=== PATIENT | male | born 1935 | race Caucasian/White ===

== ENCOUNTER 2017-02-27 05:43 | Day surgery (SDC) | payer MEDICARE ==
[2017-02-27] MEDS ORDERED: Lactated Ringers 1,000 ML IV SCH (06:30)
[2017-02-27] MEDS ORDERED: Ketamine HCl 50 MG/ML IV ONE (08:00)
[2017-02-27] MEDS ORDERED: DIPRIVAN 200 MG/20 ML IV ONE (08:00)
[2017-02-27 11:17] VITALS: O2SAT 91
[2017-02-27 11:19] VITALS: BP 146/87; PULSE 79
--- NOTE | 2017-02-27 15:23 | OP ---
SURGERY DATE/TIME: 02/27/2017 0742 PREOPERATIVE DIAGNOSIS: History of colon cancer. POSTOPERATIVE DIAGNOSIS: Multiple colon polyps. PROCEDURE: Colonoscopy with polypectomy. SURGEON: Dr. Lowry. ANESTHESIA: MAC. Medications given by anesthesia department. HISTORY: The patient is an 81 year-old white male patient presenting now for his second colonoscopy after colon resection for colon cancer. The patient was appraised of the risks of the procedure including the risk of perforation, phlebitis, untoward reaction to medication, bleeding, and missed lesions. The patient verbalized his understanding and desired to have the procedure performed. DESCRIPTION OF PROCEDURE: The patient was given the medications by the anesthesia department. He had continuous pulse oximetry, ECG monitoring, intermittent blood pressure monitoring, and tidal CO2 monitoring during the examination. He was placed in the left lateral decubitus position. A digital rectal examination was performed and revealed an enlarged prostate. No masses were felt. The flexible Olympus pediatric colonoscope was used to intubate the rectum. A view of the colon was developed sequentially to the cecum. Upon insertion and withdrawal there was noted multiple polyps measuring approximately 1 to 1.5 cm in size throughout the colon. We did remove one with polypectomy snare but we were unable to identify polyp fragments in the filter after the procedure. It was felt that due to the nature of the lesions, their size and the patient's overall health that it was in his best interest to not pursue with multiple removals of colon polyps due to potential of bleeding and his other multiple comorbid conditions. The scope was removed from the patient who tolerated the procedure well and was sent back to OP recovery in good condition. The prep was noted to be fair.
== END 2017-02-27 10:55 | disposition home or self-care (01) ==
LOC: SDC 05:43
PROVIDERS: ATTEND Family Medicine
PROC: 0DBL8ZX Excision of Transverse Colon, Via Natural or Artificial Opening Endoscopic, Diagnostic (ICD-10-PCS; principal; 2017-02-27)
DX: D12.3 Benign neoplasm of transverse colon (principal); Z85.038 Personal history of other malignant neoplasm of large intestine; Z90.49 Acquired absence of other specified parts of digestive tract
CPT/HCPCS: 00810; 36415; 88305; 99100; J2704

== ENCOUNTER 2017-05-14 06:57 | Emergency (ER) | payer MEDICARE ==
[2017-05-14 07:41] LABS: BASOPHIL % 0.4 % (0.0-0.4); Eosinophil % 2.1 % (0.00-5.0); Granulocytes % 59.1 % (36.0-66.0); Lymphocytes % 27.4 % (24.0-44.0); Mean Cell Volume 102.8 fl (78-100); Mean Corpuscular Hemoglobin 35.6 pg (26-32); Mean Platelet Volume 10.5 fl (6-9.5); Platelet Count 172 K/mm3 (150-450); Red Blood Count 4.36 M/mm3 (4.1-5.6); Red Cell Distribution Width 13.1 % (11.5-14.0); White Blood Count 10.4 K/mm3 (4.0-10.5)
--- NOTE | 2017-05-14 07:59 | ERPHSYRPT ---
- History of Present Illness Time Seen by Provider: 05/14/17 07:54 Source: patient, family Exam Limitations: no limitations Patient Subjective Stated Complaint: states that he awoke at 0300 this morning to take his pain pill - states that he noticed that his neck was swelling - states that he feels some slight difficulty catching his breath and swallowing - unknown of any new exposure Triage Nursing Assessment: ambulatory to treatment area - steady gait - moves all extremities with equal strength. alert/oriented - unpleasant/anxious affect. skin flushed/hot/dry - no rash/injury - swelling anterior neck. resps easy - labored per exertion - dry intermittent cough Physician History: states that he awoke at 0300 this morning to take his pain pill - states that he noticed that his neck was swelling - states that he feels some slight difficulty catching his breath and swallowing - unknown of any new exposure, no shortness of breath, no choking sensation, no fever, no swallowing difficulties Timing/Duration: abrupt onset Prearrival Treatment: no prearrival treatment Associated Symptoms: denies symptoms Allergies/Adverse Reactions: zolpidem tartrate [From Ambien] Adverse Reaction (Unknown, Verified 05/14/17 07: 03) took a whole tablet while in the hospital and it made him go whacky according to his spouse Home Medications: Aspirin 81 mg PO DAILY 05/14/17 [History] Diltiazem HCl [Diltiazem 24Hr ER] 240 mg PO DAILY 05/14/17 [History] Furosemide 40 mg [Lasix 40 MG] 40 mg PO DAILY 05/14/17 [History] Hydrocodone Bit/Acetaminophen [Hydrocodon-Acetaminophn 10-325] 1 each PO QID [History] Morphine Sulfate Ir 15 mg [Msir 15 mg] 15 mg PO BID 05/14/17 [History] Potassium Chloride 10 Meq Tab* [Klor Con 10 MEQ] 10 meq PO DAILY 05/14/17 [ History] Ranitidine HCl 300 mg PO DAILY 05/14/17 [History] Simvastatin 20 mg PO HS 05/14/17 [History] Hx Tetanus, Diphtheria Vaccination/Date Given: Yes Hx Influenza Vaccination/Date Given: No Hx Pneumococcal Vaccination/Date Given: No Immunizations Up to Date: Yes - Review of Systems Constitutional: No Fever, No Chills Eyes: No Symptoms Ears, Nose, & Throat: Throat Swelling, No Mouth Pain, No Mouth Swelling, No Throat Pain, No Hoarse, No Painful Swallowing, No Snoring, No Stridor Respiratory: No Symptoms Cardiac: No Symptoms Abdominal/Gastrointestinal: No Symptoms Genitourinary Symptoms: No Symptoms Musculoskeletal: No Symptoms Skin: No Symptoms Neurological: No Symptoms Hematologic/Lymphatic: No Symptoms, No Gum Bleeding, No Easy Bruising, No Adenopathy Immunological/Allergic: No Symptoms - Past Medical History Pertinent Past Medical History: Yes Neurological History: TIA ENT History: Cataracts Cardiac History: Coronary Artery Disease, High Cholesterol, Hypertension Respiratory History: COPD, Sleep Apnea Endocrine Medical History: No Pertinent History Musculoskeletal History: Other, Degenerative Disk Disease GI Medical History: Colorectal Cancer, GERD, Hernia, Polyps, Ulcer History: No Pertinent History Psycho-Social History: No Pertinent History Male Reproductive Disorders: Prostate Problems Other Medical History: chronic back pain - Past Surgical History Past Surgical History: Yes Neuro Surgical History: No Pertinent History Cardiac: Cardiac Catheterization, Cardiac Stent Respiratory: No Pertinent History Gastrointestinal: Colon Resection, Hernia Repair Genitourinary: No Pertinent History Musculoskeletal: Other Male Surgical History: Other Other Surgical History: sinus surgery. TURP. Right Shoulder surgery. left elbow surgery. Right carotid artery angioplasty. back surgery - Social History Smoking Status: Former smoker How long have you smoked: 35 Exposure to second hand smoke: No Drug Use: none Patient Lives Alone: No Significant Family History: no pertinent family hx - Nursing Vital Signs Nursing Vital Signs: Initial Vital Signs Temperature 98.8 F Temperature Source Oral Pulse Rate 70 Respiratory Rate 20 Blood Pressure [] 158/74 Pain Intensity 3 - Physical Exam General Appearance: no apparent distress, alert Eye Exam: bilateral eye: PERRL, EOMI Nasal Exam: normal inspection Throat Exam: pharynx normal, moist mucus membranes, No tonsillar exudate Neck Exam: supple (midline anterior swelling), trachea midline Cardiovascular/Respiratory Exam: normal breath sounds, regular rate/rhythm Abdominal Exam: non-tender, soft Neurologic Exam: alert, oriented x 3, sensation nml, No motor deficits Skin Exam: normal color, warm, dry SpO2: 90 Oxygen Delivery: Room Air - Course Nursing assessment & vital signs reviewed: Yes - CT Exams Soft Tissue Neck CT Interpretation: Tele-radiologist Report Ordered Tests: Active Orders 24 hr Category Date Time Status NECK WO CONTRAST [CT] Stat Exams 05/14/17 07:18 Taken CBC W DIFF Stat Lab 05/14/17 07:44 Completed CMP Stat Lab 05/14/17 07:44 Received ESR [Erythrocyte Sedimentation Rate] Stat Lab 05/14/17 07:44 Completed Lab/Rad Data: Laboratory Result Diagrams 05/14/17 07:44 Laboratory Results 05/14/17 05/14/17 Range/Units 07:44 07:44 WBC 10.4 (4.0-10.5) K/mm3 RBC 4.36 (4.1-5.6) M/mm3 Hgb 15.5 (12.5-18.0) gm/dl Hct 44.8 (42-50) % MCV 102.8 H (78-100) fl MCH 35.6 H (26-32) pg MCHC 34.6 (32-36) g/dl RDW 13.1 (11.5-14.0) % Plt Count 172 (150-450) K/mm3 MPV 10.5 H (6-9.5) fl Gran % 59.1 (36.0-66.0) % Lymphocytes % 27.4 (24.0-44.0) % Monocytes % 11.0 (0.0-12.0) % Eosinophils % 2.1 (0.00-5.0) % Basophils % 0.4 (0.0-0.4) % Basophils # 0.04 (0-0.4) ESR 6 (0-15) mm/hr - Progress Progress: unchanged Counseled pt/family regarding: lab results, diagnosis, need for follow-up, rad results - Departure Time of Disposition: 08:12 Departure Disposition: Home 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 If symptoms like breathing difficulties, swallowing problem come back to ER
[2017-05-14 08:07] LABS: ALBUMIN 3.1 g/dL (3.4-5.0); ALKALINE PHOSPHATASE 46 U/L (46-116); ANION GAP 12.5 MEQ/L (5-15); BLOOD UREA NITROGEN 11 mg/dL (9-20); CHLORIDE 110 mEq/L (98-107); Carbon Dioxide 27.6 mEq/L (21-32); Glucose 121 MG/DL (70-110); Potassium 3.2 mEq/L (3.5-5.1); SGOT/AST 16 U/L (15-37); SGPT/ALT 24 U/L (12-78); SODIUM 147 mEq/L (136-145); Total Protein 6.4 gm/dL (6.4-8.2)
[2017-05-14 08:17] VITALS: BP 139/81; PULSE 68; O2SAT 92
--- NOTE | 2017-05-14 20:03 | XRAY ---
Indication: Gross edema around neck. No known injury. Multiple contiguous axial images obtained through the neck without contrast as ordered. Comparison: None Multiple bilateral dental amalgams produces beam artifact limiting these levels. There is mild bilateral cutaneous edema. Additional deeper soft tissue edema seen in the right submandibular, range management specialist, and parotid spaces presumed inflammatory. The right submandibular gland is slightly prominent. No suspicious air or walled off fluid collection. Scattered small bilateral cervical nodes none pathologically enlarged. Previous right carotid endarterectomy and moderate left carotid calcifications. Superior/infraglottic airway widely patent. Underlying cervical spine intact with moderate/advanced multilevel degenerative spondylosis. Images through the base of the brain and lung apices unremarkable. Impression: 1. Soft tissue edema involving the right range management specialist, submandibular, and parotid space favoring cellulitis/myositis. No walled off fluid collection. 2. Incidental multilevel cervical degenerative spondylosis. Comment: Preliminary interpretation was made by [facility]. No discrepancy. CTDI 26.06
== END 2017-05-14 08:36 | disposition home or self-care (01) ==
LOC: ED 06:57
DX: K12.2 Cellulitis and abscess of mouth (principal); Z79.899 Other long term (current) drug therapy
CPT/HCPCS: 36415; 70490; 80053; 85025; 85652; 99283; 99284

== ENCOUNTER 2022-01-06 10:51 | Inpatient (IN) | payer MEDICARE, OTHER ==
[2022-01-06] MEDS ORDERED: DUONEB 0.5-3 MG/3 ml Neb IH ONE ×2 (11:36→11:41)
--- NOTE | 2022-01-06 11:40 | ERPHSYRPT ---
- History of Present Illness Time Seen by Provider: 01/06/22 10:56 Source: patient Exam Limitations: clinical condition Physician History: 86 years old is brought in the ER with chief complaint of generalized weakness fatigue and tiredness and refusal to eat or drink for the last few days. Per report patient recently and he is having a downhill course since then and not eating drinking as usual. He also has loose stool for the last few days and family noticed some difficulty breathing as well. Patient has cough and oxygen saturation of 86% on room air. Although patient denies any abdominal pain nausea or vomiting but has no appetite. Patient is not a good historian and history is obtained from son over the phone. Timing/Duration: week(s) (1), gradual onset, worse Severity: moderate Associated Symptoms: shortness of breath, cough, chills, weakness Allergies/Adverse Reactions: zolpidem tartrate [From Ambien] Adverse Reaction (Unknown, Verified 05/14/17 07:03) took a whole tablet while in the hospital and it made him go whacky according to his spouse Home Medications: Aspirin 81 mg PO DAILY 05/14/17 [History] Furosemide 40 mg [Lasix 40 MG] 40 mg PO DAILY 05/14/17 [History] Hydrocodone/Acetaminophen [Hydrocodon-Acetaminophn 10-325] 1 each PO QID 05/14/17 [History] Morphine Sulfate Ir 15 mg [Msir 15 mg] 15 mg PO BID 05/14/17 [History] Potassium Chloride 10 Meq Tab* [Klor Con 10 MEQ] 10 meq PO DAILY 05/14/17 [History] Simvastatin 20 mg PO HS 05/14/17 [History] dilTIAZem HCl [Diltiazem 24Hr ER] 240 mg PO DAILY 05/14/17 [History] Hx Tetanus, Diphtheria Vaccination/Date Given: Yes Hx Influenza Vaccination/Date Given: Yes (FALL 2010) Hx Pneumococcal Vaccination/Date Given: (FALL 2010) - Review of Systems All Other Systems: Unable due to condition - Past Medical History Pertinent Past Medical History: Yes Neurological History: TIA ENT History: Cataracts Cardiac History: Coronary Artery Disease, High Cholesterol, Hypertension Respiratory History: COPD, Sleep Apnea Endocrine Medical History: No Pertinent History Musculoskeletal History: Other, Degenerative Disk Disease GI Medical History: Colorectal Cancer, GERD, Hernia, Polyps, Ulcer History: No Pertinent History Psycho-Social History: No Pertinent History Male Reproductive Disorders: Prostate Problems Other Medical History: chronic back pain - Past Surgical History Past Surgical History: Yes Neuro Surgical History: No Pertinent History Cardiac: Cardiac Catheterization, Cardiac Stent Respiratory: No Pertinent History Gastrointestinal: Colon Resection, Hernia Repair Genitourinary: No Pertinent History Musculoskeletal: Other Male Surgical History: Other Other Surgical History: sinus surgery. TURP. Right Shoulder surgery. left elbow surgery. Right carotid artery angioplasty. back surgery - Social History Smoking Status: Former smoker Exposure to second hand smoke: No Drug Use: none Patient Lives Alone: No Significant Family History: no pertinent family hx - Nursing Vital Signs Nursing Vital Signs: Initial Vital Signs Temperature 97.2 F 01/06/22 11:25 Pulse Rate 88 01/06/22 11:25 Respiratory Rate 18 01/06/22 11:25 Blood Pressure 139/80 01/06/22 11:25 O2 Sat by Pulse Oximetry 89 L 01/06/22 11:25 Pain Scale Pain Intensity 2 - Physical Exam General Appearance: no apparent distress, alert Eye Exam: PERRL/EOMI, eyes nml inspection Ears, Nose, Throat Exam: normal ENT inspection, TMs normal, pharynx normal, moist mucous membranes Neck Exam: normal inspection, non-tender, supple, full range of motion Respiratory Exam: diminished breath sounds, crackles/rales, rhonchi, wheezing Cardiovascular Exam: regular rate/rhythm, normal heart sounds Gastrointestinal/Abdomen Exam: soft, normal bowel sounds, No tenderness Back Exam: normal inspection, normal range of motion Extremity Exam: normal inspection, normal range of motion Neurologic Exam: alert, oriented x 3, cooperative, No normal mood/affect, No motor deficits Skin Exam: normal color SpO2 Interpretation: hypoxic, O2 applied SpO2: 93 O2 Delivery: Nasal Cannula - Course EKG Interpreted by Me: RATE (83), Sinus Rhythm, NORMAL AXIS, Q-wave, Non- specific ST Changes Ordered Tests: Active Orders 24 hr Category Date Time Status EKG-ER Only STAT Care 01/06/22 11:35 Active IV Insertion STAT Care 01/06/22 11:35 Active ABDOMEN AND PELVIS W/0 CONTRAS [CT] Stat Exams 01/06/22 11:41 Completed CHEST 1 VIEW (PORTABLE) Stat Exams 01/06/22 11:35 Completed BLOOD CULTURE Stat Lab 01/06/22 12:25 Received CBC W DIFF Stat Lab 01/06/22 12:20 Completed CMP Stat Lab 01/06/22 12:20 Completed LIPASE Stat Lab 01/06/22 12:20 Completed Lactic Acid Stat Lab 01/06/22 12:43 Completed NT PRO BNP Stat Lab 01/06/22 12:20 Completed TROPONIN Q3H Lab 01/06/22 12:20 Completed TROPONIN Q3H Lab 01/06/22 14:45 Completed TROPONIN Q3H Lab 01/06/22 17:45 Ordered TROPONIN Q3H Lab 01/06/22 20:45 Ordered TROPONIN Q3H Lab 01/06/22 23:45 Ordered UA W/RFX UR CULTURE Stat Lab 01/06/22 15:12 Completed Respiratory Therapy Assessment DAILY RT 01/06/22 12:00 Completed Transfer Order Routine Transfer 01/06/22 Ordered Medication Summary Generic Name Dose Route Start Last Admin Trade Name Freq PRN Reason Stop Dose Admin Sodium Chloride 1,000 mls @ 100 mls/hr 01/06/22 11:45 01/06/22 16:57 Sodium Chloride 0.9% 1000 Ml IV 02/05/22 11:44 Not Given .Q10H CHANNING Discontinued Medications Generic Name Dose Route Start Last Admin Trade Name Freq PRN Reason Stop Dose Admin Albuterol/Ipratropium 3 ml 01/06/22 11:36 01/06/22 12:00 Ipratropium/Albuterol Sulfate 3 Ml Ampul.Neb IH 01/06/22 11:37 3 ml STAT ONE Administration Albuterol/Ipratropium Confirm 01/06/22 11:41 Ipratropium/Albuterol Sulfate 3 Ml Ampul.Neb Administered 01/06/22 11:42 Dose 3 ml IH .STK-MED ONE Ceftriaxone Sodium/Dextrose 2 g in 50 mls @ 100 mls/hr 01/06/22 13:22 01/06/22 14:20 Rocephin 2 Gm-D5w 50ml Bag IV 01/06/22 13:51 Infused STAT STA Infusion Azithromycin 500 mg in 250 mls @ 250 mls/hr 01/06/22 13:22 01/06/22 15:08 Zithromax 500 Mg/ 250 Ml Nacl Premix IV 01/06/22 14:21 250 ml/hr STAT STA 250 mls/hr Administration Ceftriaxone Sodium/Dextrose Confirm 01/06/22 13:43 Rocephin 2 Gm-D5w 50ml Bag Administered 01/06/22 13:44 Dose 2 g in 50 mls @ ud IV .STK-MED ONE Azithromycin Confirm 01/06/22 15:01 Zithromax 500 Mg/ 250 Ml Nacl Premix Administered 01/06/22 15:02 Dose 500 mg in 250 mls @ ud IV .STK-MED ONE Sodium Chloride Confirm 01/06/22 16:36 Sodium Chloride 0.9% 1000 Ml Administered 01/06/22 16:37 Dose 1,000 mls @ ud .ROUTE .STK-MED ONE Lab/Rad Data: Laboratory Result Diagrams 01/06/22 12:20 01/06/22 12:20 Laboratory Results 01/06/22 01/06/22 01/06/22 Range/Units 15:21 15:12 14:45 WBC (4.0-10.5) K/mm3 RBC (4.1-5.6) M/mm3 Hgb (12.5-18.0) gm/dl Hct (42-50) % MCV (78-100) fl MCH (26-32) pg MCHC (32-36) g/dl RDW (11.5-14.0) % Plt Count (150-450) K/mm3 MPV (7.5-11.0) fl Gran % (36.0-66.0) % Eos # (Auto) (0-0.5) Absolute Lymphs (auto) (1.0-4.6) Absolute Monos (auto) (0.0-1.3) Lymphocytes % (24.0-44.0) % Monocytes % (0.0-12.0) % Eosinophils % (0.00-5.0) % Basophils % (0.0-0.4) % Absolute Granulocytes (1.4-6.9) Basophils # (0-0.4) Sodium (137-145) mmol/L Potassium (3.5-5.1) mmol/L Chloride (98-107) mmol/L Carbon Dioxide (22-30) mmol/L Anion Gap (5-15) MEQ/L BUN (9-20) mg/dL Creatinine (0.66-1.25) mg/dL Estimated GFR ML/MIN Glucose (74-106) mg/dL Lactic Acid (0.4-2.0) Calcium (8.4-10.2) mg/dL Total Bilirubin (0.2-1.3) mg/dL AST (17-59) U/L ALT (0-50) U/L Alkaline Phosphatase (38-126) U/L Troponin I 0.019 (0.000-0.034) ng/mL NT-Pro-B Natriuret Pep (0-1800) pg/mL Serum Total Protein (6.3-8.2) g/dL Albumin (3.5-5.0) g/dL Lipase (23-300) U/L Urine Color YELLOW (YELLOW) Urine Appearance SLIGHTLY CLOUDY (CLEAR) Urine pH 6.0 (5-6) Ur Specific Humphreys 1.017 (1.005-1.025) Urine Protein >=500 (Negative) Urine Ketones SMALL (NEGATIVE) Urine Blood SMALL (0-5) Noah/ul Urine Nitrite NEGATIVE (NEGATIVE) Urine Bilirubin NEGATIVE (NEGATIVE) Urine Urobilinogen NEGATIVE (0-1) mg/dL Ur Leukocyte Esterase NEGATIVE (NEGATIVE) Urine WBC (Auto) 3-5 (0-5) /HPF Urine RBC (Auto) 16-25 (0-2) /HPF U Epithel Cells (Auto) NONE (FEW) /HPF Urine Bacteria (Auto) RARE (NEGATIVE) /HPF Urine Mucus (Auto) SLIGHT (NEGATIVE) /HPF Urine Culture Reflexed NO (NO) Urine Glucose NEGATIVE (NEGATIVE) mg/dL Influenza Type A Ag NEGATIVE (NEGATIVE) Influenza Type B Ag NEGATIVE (NEGATIVE) RSV (PCR) NEGATIVE (Negative) SARS-CoV-2 (PCR) POSITIVE A (NEGATIVE) 01/06/22 01/06/22 01/06/22 Range/Units 12:43 12:20 12:20 WBC (4.0-10.5) K/mm3 RBC (4.1-5.6) M/mm3 Hgb (12.5-18.0) gm/dl Hct (42-50) % MCV (78-100) fl MCH (26-32) pg MCHC (32-36) g/dl RDW (11.5-14.0) % Plt Count (150-450) K/mm3 MPV (7.5-11.0) fl Gran % (36.0-66.0) % Eos # (Auto) (0-0.5) Absolute Lymphs (auto) (1.0-4.6) Absolute Monos (auto) (0.0-1.3) Lymphocytes % (24.0-44.0) % Monocytes % (0.0-12.0) % Eosinophils % (0.00-5.0) % Basophils % (0.0-0.4) % Absolute Granulocytes (1.4-6.9) Basophils # (0-0.4) Sodium 139 (137-145) mmol/L Potassium 3.9 (3.5-5.1) mmol/L Chloride 98 (98-107) mmol/L Carbon Dioxide 32 H (22-30) mmol/L Anion Gap 13.4 (5-15) MEQ/L BUN 11 (9-20) mg/dL Creatinine 0.85 (0.66-1.25) mg/dL Estimated GFR > 60.0 ML/MIN Glucose 116 H (74-106) mg/dL Lactic Acid 1.9 (0.4-2.0) Calcium 8.3 L (8.4-10.2) mg/dL Total Bilirubin 0.70 (0.2-1.3) mg/dL AST 41 (17-59) U/L ALT 32 (0-50) U/L Alkaline Phosphatase 64 (38-126) U/L Troponin I 0.021 (0.000-0.034) ng/mL NT-Pro-B Natriuret Pep 397 (0-1800) pg/mL Serum Total Protein 6.9 (6.3-8.2) g/dL Albumin 3.7 (3.5-5.0) g/dL Lipase 426 H (23-300) U/L Urine Color (YELLOW) Urine Appearance (CLEAR) Urine pH (5-6) Ur Specific Humphreys (1.005-1.025) Urine Protein (Negative) Urine Ketones (NEGATIVE) Urine Blood (0-5) Noah/ul Urine Nitrite (NEGATIVE) Urine Bilirubin (NEGATIVE) Urine Urobilinogen (0-1) mg/dL Ur Leukocyte Esterase (NEGATIVE) Urine WBC (Auto) (0-5) /HPF Urine RBC (Auto) (0-2) /HPF U Epithel Cells (Auto) (FEW) /HPF Urine Bacteria (Auto) (NEGATIVE) /HPF Urine Mucus (Auto) (NEGATIVE) /HPF Urine Culture Reflexed (NO) Urine Glucose (NEGATIVE) mg/dL Influenza Type A Ag (NEGATIVE) Influenza Type B Ag (NEGATIVE) RSV (PCR) (Negative) SARS-CoV-2 (PCR) (NEGATIVE) 01/06/22 Range/Units 12:20 WBC 6.0 (4.0-10.5) K/mm3 RBC 4.83 (4.1-5.6) M/mm3 Hgb 16.8 (12.5-18.0) gm/dl Hct 51.0 H (42-50) % MCV 105.6 H (78-100) fl MCH 34.8 H (26-32) pg MCHC 32.9 (32-36) g/dl RDW 13.1 (11.5-14.0) % Plt Count 120 L (150-450) K/mm3 MPV 10.8 (7.5-11.0) fl Gran % 60.3 (36.0-66.0) % Eos # (Auto) 0 (0-0.5) Absolute Lymphs (auto) 1.56 (1.0-4.6) Absolute Monos (auto) 0.82 (0.0-1.3) Lymphocytes % 25.9 (24.0-44.0) % Monocytes % 13.6 H (0.0-12.0) % Eosinophils % 0.0 (0.00-5.0) % Basophils % 0.2 (0.0-0.4) % Absolute Granulocytes 3.64 (1.4-6.9) Basophils # 0.01 (0-0.4) Sodium (137-145) mmol/L Potassium (3.5-5.1) mmol/L Chloride (98-107) mmol/L Carbon Dioxide (22-30) mmol/L Anion Gap (5-15) MEQ/L BUN (9-20) mg/dL Creatinine (0.66-1.25) mg/dL Estimated GFR ML/MIN Glucose (74-106) mg/dL Lactic Acid (0.4-2.0) Calcium (8.4-10.2) mg/dL Total Bilirubin (0.2-1.3) mg/dL AST (17-59) U/L ALT (0-50) U/L Alkaline Phosphatase (38-126) U/L Troponin I (0.000-0.034) ng/mL NT-Pro-B Natriuret Pep (0-1800) pg/mL Serum Total Protein (6.3-8.2) g/dL Albumin (3.5-5.0) g/dL Lipase (23-300) U/L Urine Color (YELLOW) Urine Appearance (CLEAR) Urine pH (5-6) Ur Specific Humphreys (1.005-1.025) Urine Protein (Negative) Urine Ketones (NEGATIVE) Urine Blood (0-5) Noah/ul Urine Nitrite (NEGATIVE) Urine Bilirubin (NEGATIVE) Urine Urobilinogen (0-1) mg/dL Ur Leukocyte Esterase (NEGATIVE) Urine WBC (Auto) (0-5) /HPF Urine RBC (Auto) (0-2) /HPF U Epithel Cells (Auto) (FEW) /HPF Urine Bacteria (Auto) (NEGATIVE) /HPF Urine Mucus (Auto) (NEGATIVE) /HPF Urine Culture Reflexed (NO) Urine Glucose (NEGATIVE) mg/dL Influenza Type A Ag (NEGATIVE) Influenza Type B Ag (NEGATIVE) RSV (PCR) (Negative) SARS-CoV-2 (PCR) (NEGATIVE) - Progress Progress: improved, re-examined Progress Note: 01/06/22 13:25 86 years old is evaluated for generalized weakness fatigue, decreased oral intake, diarrhea and was having difficulty breathing with oxygen saturation dropping to 86% on room air. Placed on 2 L and given neb treatment, on reevaluation feeling better. Chest x-ray showed bilateral airspace disease, started on antibiotics. Has normal white count, lactate. Chemistry profile showed mild hypocalcemia. I have obtained CT abdomen pelvis as well which showed a calculus in the bladder but no obstructive uropathy. We will continue with gentle hydration and discussed with Dr. Lowry, patient is admitted. 01/06/22 17:13 Patient is COVID-19 positive, discussed with Dr. Mann and patient is accepted for admission, recommended starting on remdesivir which will be started. Discussed with : Phong Morales Will see patient in: hospital (observation) Counseled pt/family regarding: lab results, diagnosis, need for follow-up, rad results - Departure Departure Disposition: Observation Clinical Impression: Pneumonia, Generalized weakness Respiratory failure Qualifiers: Chronicity: acute Respiratory failure complication: hypoxia Qualified Code(s): J96.01 - Acute respiratory failure with hypoxia Condition: Stable Critical Care Time: No
[2022-01-06 12:32] LABS: Absolute Neutrophil Ct (ANC) 3.64 (1.4-6.9); Basophil (Absolute #) 0.01 (0-0.4); Eosinophil (Absolute #) 0 (0-0.5); Hemoglobin 16.8 gm/dl (12.5-18.0); Lymphocyte (Absolute #) 1.56 (1.0-4.6); Lymphocytes % 25.9 % (24.0-44.0); Mean Cell Volume 105.6 fl (78-100); Mean Corpuscular Hemoglobin 34.8 pg (26-32); Mean Corpuscular Hgb Concent. 32.9 g/dl (32-36); Mean Platelet Volume 10.8 fl (7.5-11.0); Monocyte (Absolute #) 0.82 (0.0-1.3); Monocytes % 13.6 % (0.0-12.0); Neutrophil % 60.3 % (36.0-66.0); Platelet Count 120 K/mm3 (150-450); Red Blood Count 4.83 M/mm3 (4.1-5.6); Red Cell Distribution Width 13.1 % (11.5-14.0)
[2022-01-06 13:02] LABS: ALBUMIN 3.7 g/dL (3.5-5.0); ALKALINE PHOSPHATASE 64 U/L (38-126); ANION GAP 13.4 MEQ/L (5-15); BLOOD UREA NITROGEN 11 mg/dL (9-20); CHLORIDE 98 mmol/L (98-107); Calcium 8.3 mg/dL (8.4-10.2); Carbon Dioxide 32 mmol/L (22-30); Creatinine 1 0.85 mg/dL (0.66-1.25); EST GLOMERULAR FILTRATION RATE > 60.0 ML/MIN; Glucose 116 mg/dL (74-106); LIPASE 426 U/L (23-300); NT PRO BNP 397 pg/mL (0-1800); Potassium 3.9 mmol/L (3.5-5.1); SGOT/AST 41 U/L (17-59); SGPT/ALT 32 U/L (0-50); SODIUM 139 mmol/L (137-145); Total Protein 6.9 g/dL (6.3-8.2)
--- NOTE | 2022-01-06 13:11 | XRAY ---
Indication: Diarrhea. Multiple contiguous axial images obtained through the abdomen and pelvis without contrast. Comparison: September 27, 2011. Diffuse respiration artifact limits the exam. Lung bases demonstrates new diffuse patchy consolidating/nonconsolidating airspace disease left greater than right. No effusion. Heart is not enlarged. Right hilar calcified nodes. Noncontrasted stomach and bowel loops appear nonobstructed. Normal appendix. No free fluid/air. Interval markedly enlarging prostate gland again impresses on the base of the bladder. Posterior bladder demonstrates 4 mm midline calculus. Left upper kidney demonstrates new 1.6 cm exophytic cyst. New tiny hepatic/splenic calcific granulomas. Remaining liver, gallbladder, pancreas, spleen, adrenal glands, kidneys, ureters, and bladder are unremarkable for noncontrast exam. Worsening significant scattered arteriosclerotic calcifications with distal abdominal aortic ectasia up to 2.7 cm in diameter. Osseous structures again demonstrates osteopenia, moderate dextroscoliosis, and progressive worsening moderate/advanced multilevel thoracolumbar degenerative spondylosis. Stable small bilateral fatty inguinal hernias. Impression: 1. Diffuse respiration artifact. 2. New diffuse bilateral consolidating/nonconsolidating airspace disease. Rule out Covid 19 pneumonia. 3. New urinary bladder micro-calculus without hydronephrosis or evidence for obstructive uropathy. New left renal cyst. 4. Worsening scattered arteriosclerotic disease with distal abdominal aortic ectasia. 5. Markedly enlarged prostate gland. 6. Progressive worsening multilevel degenerative spondylosis. 7. Again bilateral fatty inguinal hernias, osteopenia, scoliosis, and old granulomatous disease.
--- NOTE | 2022-01-06 13:13 | XRAY ---
Indication: Weakness. Pneumonia. Comparison: June 11, 2015. Portable chest less inflated with new bibasilar hazy interstitial alveolar opacities. No large effusion. Heart not enlarged again with right hilar calcified nodes. Bony thorax intact again with osteopenia, degenerative changes, and right shoulder surgery.
[2022-01-06] MEDS ORDERED: Zithromax 500 MG/ 250 ML NaCl Premix 500 MG/250 ML IVPB IV STA (13:22)
[2022-01-06] MEDS ORDERED: ROCEPHIN 2 Gm-D5w 50ML BAG** 2 G/50 ML IVPB IV STA (13:22)
[2022-01-06] MEDS ORDERED: ROCEPHIN 2 Gm-D5w 50ML BAG** 2 G/50 ML IVPB IV ONE (13:43)
[2022-01-06] MEDS ORDERED: Zithromax 500 MG/ 250 ML NaCl Premix 500 MG/250 ML IVPB IV ONE (15:01)
[2022-01-06 15:28] LABS: Appearance SLIGHTLY CLOUDY (CLEAR); Bacteria RARE /HPF (NEGATIVE); Bilirubin NEGATIVE (NEGATIVE); Blood SMALL Ery/ul (0-5); Glucose NEGATIVE (NEGATIVE); Ketones SMALL (NEGATIVE); Leukocyte Esterase NEGATIVE (NEGATIVE); Mucus SLIGHT /HPF (NEGATIVE); Nitrite NEGATIVE (NEGATIVE); Protein,Urine Dip >=500 (Negative); Specific Gravity 1.017 (1.005-1.025); Urobilinogen NEGATIVE mg/dL (0-1)
[2022-01-06 16:08] LABS: INFLUENZA A NEGATIVE (NEGATIVE); INFLUENZA B NEGATIVE (NEGATIVE); RESPIRATORY SYNCTIAL VIRUS NEGATIVE (Negative)
[2022-01-06 16:14] LABS: SARS-CoV-2 Xpert Express POSITIVE (NEGATIVE)
[2022-01-06] MEDS ORDERED: Sodium Chloride 0.9% 1000 ML 1,000 ML ONE (16:36)
[2022-01-06] MEDS: Sodium Chloride 0.9% 1000 ML 1,000 ML IV SCH (16:57)
[2022-01-06] MEDS ORDERED: TYLENOL 325 MG PO PRN (17:35)
[2022-01-06] MEDS ORDERED: Zofran 4 MG/2 ML VIAL IV PRN (17:35)
[2022-01-06] MEDS ORDERED: DUONEB 0.5-3 MG/3 ml Neb IH SCH (19:00)
[2022-01-06] MEDS ORDERED: REMDESIVIR 200 MG in Sodium Chloride 0.9% 250 ML 250 ML IV ONE (19:00)
[2022-01-06] MEDS ORDERED: HYDROCODONE-ACETAMIN 10-325 MG PO PRN (20:37)
[2022-01-06] MEDS ORDERED: MSIR 15 MG PO PRN ×2 (20:38→20:42)
[2022-01-06] MEDS ORDERED: Ativan 1 MG PO PRN (20:40)
[2022-01-06] MEDS: ZOCOR 20MG PO SCH (20:46)
[2022-01-07] MEDS: Sodium Chloride 0.9% 1000 ML 1,000 ML IV SCH ×2 (04:05→19:30)
[2022-01-07 05:38] LABS: Absolute Neutrophil Ct (ANC) 4.11 (1.4-6.9); Basophil (Absolute #) 0.01 (0-0.4); Eosinophil % 0.2 % (0.00-5.0); Eosinophil (Absolute #) 0.01 (0-0.5); Hematocrit 50.9 % (42-50); Hemoglobin 16.9 gm/dl (12.5-18.0); Lymphocyte (Absolute #) 1.35 (1.0-4.6); Mean Cell Volume 105.8 fl (78-100); Mean Corpuscular Hemoglobin 35.1 pg (26-32); Mean Corpuscular Hgb Concent. 33.2 g/dl (32-36); Mean Platelet Volume 11.3 fl (7.5-11.0); Monocyte (Absolute #) 0.66 (0.0-1.3); Monocytes % 10.7 % (0.0-12.0); Neutrophil % 66.9 % (36.0-66.0); Platelet Count 117 K/mm3 (150-450); Red Blood Count 4.81 M/mm3 (4.1-5.6); Red Cell Distribution Width 13.3 % (11.5-14.0); White Blood Count 6.1 K/mm3 (4.0-10.5)
[2022-01-07 06:16] LABS: ALBUMIN 3.3 g/dL (3.5-5.0); ALKALINE PHOSPHATASE 50 U/L (38-126); ANION GAP 11.3 MEQ/L (5-15); BLOOD UREA NITROGEN 10 mg/dL (9-20); CHLORIDE 103 mmol/L (98-107); Calcium 7.8 mg/dL (8.4-10.2); Carbon Dioxide 29 mmol/L (22-30); Creatinine 1 0.78 mg/dL (0.66-1.25); EST GLOMERULAR FILTRATION RATE > 60.0 ML/MIN; Glucose 93 mg/dL (74-106); Potassium 3.8 mmol/L (3.5-5.1); SGOT/AST 48 U/L (17-59); SGPT/ALT 35 U/L (0-50); SODIUM 139 mmol/L (137-145); Total Protein 6.6 g/dL (6.3-8.2)
[2022-01-07] MEDS: HYDROCODONE-ACETAMIN 10-325 MG PO PRN ×2 (07:28→14:46)
[2022-01-07] MEDS ORDERED: TYLENOL EXTRA STRENGTH 500 MG PO PRN (09:56)
[2022-01-07] MEDS ORDERED: Ativan 2 MG/1 ML VIAL IV PRN (09:56)
[2022-01-07] MEDS ORDERED: HYDROCODONE-CHLORPHEN ER SUSP PO PRN (09:56)
[2022-01-07] MEDS ORDERED: FEVERALL 650 MG PR PRN (09:56)
[2022-01-07] MEDS ORDERED: NON-FORMULARY ITEM (Aspirin [Aspirin] 81 MG Tablet) PO SCH (10:00)
[2022-01-07] MEDS ORDERED: NON-FORMULARY ITEM (Diltiazem Hcl [Diltiazem 24hr Er (Cd)] 240 MG Cap.Er.24h) PO SCH (10:00)
[2022-01-07] MEDS: ENOXAPARIN SODIUM SQ SCH (10:25)
[2022-01-07] MEDS: Cardizem CD 120 MG PO SCH (10:25)
[2022-01-07] MEDS: Klor Con 10 MEQ PO SCH (10:25)
[2022-01-07] MEDS: Lasix 40 MG PO SCH (10:25)
[2022-01-07] MEDS: ECOTRIN 81 MG PO SCH (10:25)
[2022-01-07] MEDS: DECADRON 10MG INJ. IV SCH (10:26)
[2022-01-07] MEDS: PROTONIX 40 MG IV IV SCH (10:26)
[2022-01-07] MEDS: ROCEPHIN 2 Gm-D5w 50ML BAG** 2 G/50 ML IVPB IV SCH (10:39)
[2022-01-07] MEDS: Zithromax 500 MG/ 250 ML NaCl Premix 500 MG/250 ML IVPB IV SCH (10:39)
[2022-01-07] MEDS: IMODIUM 2 MG PO PRN ×2 (17:42→21:26)
[2022-01-07] MEDS: MSIR 15 MG PO SCH (21:26)
[2022-01-07] MEDS: ZOCOR 20MG PO SCH (21:26)
[2022-01-07] MEDS: REMDESIVIR 100 MG in Sodium Chloride 0.9% 100 ML BAG 100 ML IV SCH (21:26)
[2022-01-08] MEDS: Ativan 2 MG/1 ML VIAL IV PRN ×3 (02:31→21:16)
[2022-01-08] MEDS: Sodium Chloride 0.9% 1000 ML 1,000 ML IV SCH ×5 (05:43→22:42)
[2022-01-08 06:06] LABS: Hematocrit 48.3 % (42-50); Hemoglobin 16.3 gm/dl (12.5-18.0); Mean Cell Volume 105.7 fl (78-100); Mean Corpuscular Hemoglobin 35.7 pg (26-32); Mean Corpuscular Hgb Concent. 33.7 g/dl (32-36); Mean Platelet Volume 11.5 fl (7.5-11.0); Platelet Count 106 K/mm3 (150-450); Red Blood Count 4.57 M/mm3 (4.1-5.6); White Blood Count 4.6 K/mm3 (4.0-10.5)
[2022-01-08 06:20] LABS: ALBUMIN 2.9 g/dL (3.5-5.0); ALKALINE PHOSPHATASE 44 U/L (38-126); ANION GAP 10.3 MEQ/L (5-15); BLOOD UREA NITROGEN 20 mg/dL (9-20); CHLORIDE 110 mmol/L (98-107); Calcium 7.6 mg/dL (8.4-10.2); Carbon Dioxide 26 mmol/L (22-30); Creatinine 1 0.79 mg/dL (0.66-1.25); EST GLOMERULAR FILTRATION RATE > 60.0 ML/MIN; Glucose 142 mg/dL (74-106); Potassium 3.8 mmol/L (3.5-5.1); SGOT/AST 32 U/L (17-59); SGPT/ALT 34 U/L (0-50); SODIUM 142 mmol/L (137-145)
[2022-01-08] MEDS: HYDROCODONE-ACETAMIN 10-325 MG PO PRN ×2 (07:27→11:43)
--- NOTE | 2022-01-08 07:30 | XRAY ---
Indication: Follow-up Covid 19 pneumonia. Comparison: January 06, 2022. Portable chest underinflated with interval worsening mild diffuse left lung consolidating/nonconsolidating airspace disease. Stable right base infiltrate/atelectasis. Heart not enlarged. Comment: Preliminary interpretation made by [facility]. No critical discrepancy.
[2022-01-08] MEDS: ECOTRIN 81 MG PO SCH (09:16)
[2022-01-08] MEDS: DECADRON 10MG INJ. IV SCH (09:16)
[2022-01-08] MEDS: Lasix 40 MG PO SCH (09:16)
[2022-01-08] MEDS: Cardizem CD 120 MG PO SCH (09:16)
[2022-01-08] MEDS: ENOXAPARIN SODIUM SQ SCH ×2 (09:16→21:15)
[2022-01-08] MEDS: PROTONIX 40 MG IV IV SCH (09:16)
[2022-01-08] MEDS: Klor Con 10 MEQ PO SCH (09:16)
[2022-01-08] MEDS: MSIR 15 MG PO SCH ×2 (09:16→21:17)
[2022-01-08] MEDS: NYSTOP POWDER 15 GM TP SCH ×2 (09:17→21:17)
[2022-01-08] MEDS: Zithromax 500 MG/ 250 ML NaCl Premix 500 MG/250 ML IVPB IV SCH (09:22)
[2022-01-08] MEDS: ROCEPHIN 2 Gm-D5w 50ML BAG** 2 G/50 ML IVPB IV SCH (10:11)
[2022-01-08] MEDS ORDERED: ENOXAPARIN SODIUM SQ ONE (11:30)
[2022-01-08] MEDS ORDERED: Lasix 20 MG/2 ML IV ONE (11:30)
[2022-01-08] MEDS: IMODIUM 2 MG PO PRN (11:43)
[2022-01-08] MEDS: OLUMIANT PO SCH (11:43)
[2022-01-08] MEDS: ZOCOR 20MG PO SCH (21:15)
[2022-01-08] MEDS: REMDESIVIR 100 MG in Sodium Chloride 0.9% 100 ML BAG 100 ML IV SCH (21:15)
[2022-01-09] MEDS: Artificial Tears 15 ML OP SCH ×3 (01:38→22:45)
[2022-01-09] MEDS: Ativan 2 MG/1 ML VIAL IV PRN ×3 (02:41→12:52)
[2022-01-09] MEDS: HYDROCODONE-ACETAMIN 10-325 MG PO PRN ×2 (03:25→12:49)
[2022-01-09 05:49] LABS: Hematocrit 50.4 % (42-50); Hemoglobin 16.9 gm/dl (12.5-18.0); Mean Cell Volume 104.8 fl (78-100); Mean Corpuscular Hemoglobin 35.1 pg (26-32); Mean Corpuscular Hgb Concent. 33.5 g/dl (32-36); Mean Platelet Volume 11.4 fl (7.5-11.0); Platelet Count 136 K/mm3 (150-450); Red Blood Count 4.81 M/mm3 (4.1-5.6); Red Cell Distribution Width 13.2 % (11.5-14.0); White Blood Count 7.2 K/mm3 (4.0-10.5)
[2022-01-09 06:10] LABS: ALKALINE PHOSPHATASE 44 U/L (38-126); ANION GAP 11.3 MEQ/L (5-15); BLOOD UREA NITROGEN 24 mg/dL (9-20); CHLORIDE 111 mmol/L (98-107); Calcium 7.6 mg/dL (8.4-10.2); Carbon Dioxide 26 mmol/L (22-30); Creatinine 1 0.92 mg/dL (0.66-1.25); EST GLOMERULAR FILTRATION RATE > 60.0 ML/MIN; Glucose 157 mg/dL (74-106); Potassium 3.5 mmol/L (3.5-5.1); SGOT/AST 22 U/L (17-59); SGPT/ALT 27 U/L (0-50); SODIUM 145 mmol/L (137-145); Total Protein 6.1 g/dL (6.3-8.2)
[2022-01-09] MEDS ORDERED: Haldol 5 MG IM PRN (08:56)
--- NOTE | 2022-01-09 08:56 | XRAY ---
Indication: Follow-up Covid 19 pneumonia. Comparison: One day earlier. Portable chest unchanged again underinflated with diffuse left lung consolidating/nonconsolidating airspace disease and mild right base infiltrate/atelectasis. Heart not enlarged. No new cardiopulmonary abnormalities.
[2022-01-09] MEDS ORDERED: Haldol 5 MG IM ONE (10:04)
[2022-01-09] MEDS: Lasix 40 MG PO SCH (10:06)
[2022-01-09] MEDS: OLUMIANT PO SCH (10:06)
[2022-01-09] MEDS: ECOTRIN 81 MG PO SCH (10:06)
[2022-01-09] MEDS: Cardizem CD 120 MG PO SCH (10:06)
[2022-01-09] MEDS: DECADRON 10MG INJ. IV SCH (10:06)
[2022-01-09] MEDS: Klor Con 10 MEQ PO SCH (10:06)
[2022-01-09] MEDS: PROTONIX 40 MG IV IV SCH (10:08)
[2022-01-09] MEDS: NYSTOP POWDER 15 GM TP SCH ×2 (10:09→22:47)
[2022-01-09] MEDS: MSIR 15 MG PO SCH ×2 (10:16→22:46)
[2022-01-09] MEDS: IMODIUM 2 MG PO PRN (10:21)
[2022-01-09] MEDS: ENOXAPARIN SODIUM SQ SCH ×2 (11:20→22:45)
[2022-01-09] MEDS: Sodium Chloride 0.9% 1000 ML 1,000 ML IV SCH ×3 (15:11→23:12)
[2022-01-09] MEDS: REMDESIVIR 100 MG in Sodium Chloride 0.9% 100 ML BAG 100 ML IV SCH (22:45)
[2022-01-09] MEDS: ZOCOR 20MG PO SCH (22:46)
[2022-01-10] MEDS: Haldol 5 MG IM PRN ×3 (01:23→18:52)
[2022-01-10] MEDS: Ativan 2 MG/1 ML VIAL IV PRN ×3 (04:33→22:38)
[2022-01-10 05:12] LABS: Hematocrit 49.1 % (42-50); Hemoglobin 16.4 gm/dl (12.5-18.0); Mean Cell Volume 104.9 fl (78-100); Mean Corpuscular Hgb Concent. 33.4 g/dl (32-36); Platelet Count 151 K/mm3 (150-450); Red Blood Count 4.68 M/mm3 (4.1-5.6); Red Cell Distribution Width 12.8 % (11.5-14.0); White Blood Count 4.9 K/mm3 (4.0-10.5)
[2022-01-10 05:36] LABS: ALKALINE PHOSPHATASE 42 U/L (38-126); ANION GAP 10.3 MEQ/L (5-15); BLOOD UREA NITROGEN 26 mg/dL (9-20); CHLORIDE 106 mmol/L (98-107); Calcium 7.6 mg/dL (8.4-10.2); Carbon Dioxide 31 mmol/L (22-30); Creatinine 1 0.91 mg/dL (0.66-1.25); EST GLOMERULAR FILTRATION RATE > 60.0 ML/MIN; Glucose 143 mg/dL (74-106); Potassium 3.5 mmol/L (3.5-5.1); SGOT/AST 27 U/L (17-59); SGPT/ALT 28 U/L (0-50); SODIUM 143 mmol/L (137-145)
[2022-01-10 07:33] LABS: A-aADO2 451; ABG POTASSIUM 3.4 (3.5-5.1); ABG SITE LEFT BRACHIAL; ARTERIAL BLD GAS O2 SATURATION 92.5 % (95-100); ARTERIAL BLOOD GAS BASE EXCESS 7.5 (-2.0-2.0); ARTERIAL BLOOD GAS FIO2 80 %; ARTERIAL BLOOD GAS PCO2 47 mmHg (35-45); ARTERIAL BLOOD GAS PO2 61 mmHg (75-100); ARTERIAL BLOOD GAS VENT MODE OXYMASK 15 L; ARTERIAL BLOOD GAS pH 7.45 (7.35-7.45); CARBOXYHEMOGLOBIN 1.5 % THgb (0.0-6.9); HCO3- 32.7 (22-28); HGB O2 SAT 90.6 g/dF (94-100); Methhemoglobin 0.6 % (1.4-1.5)
[2022-01-10] MEDS: Sodium Chloride 0.9% 1000 ML 1,000 ML IV SCH ×2 (08:31→16:08)
[2022-01-10] MEDS: PROTONIX 40 MG IV IV SCH (09:15)
[2022-01-10] MEDS: ENOXAPARIN SODIUM SQ SCH ×2 (09:15→22:22)
[2022-01-10] MEDS: DECADRON 10MG INJ. IV SCH (09:15)
[2022-01-10] MEDS: OLUMIANT PO SCH (09:16)
[2022-01-10] MEDS: Cardizem CD 120 MG PO SCH (09:16)
[2022-01-10] MEDS: Lasix 40 MG PO SCH (09:16)
[2022-01-10] MEDS: Klor Con 10 MEQ PO SCH (09:17)
[2022-01-10] MEDS: ECOTRIN 81 MG PO SCH (09:17)
[2022-01-10] MEDS: Artificial Tears 15 ML OP SCH ×2 (09:17→22:22)
[2022-01-10] MEDS: NYSTOP POWDER 15 GM TP SCH ×2 (09:26→22:23)
[2022-01-10] MEDS: MSIR 15 MG PO SCH ×2 (09:26→22:22)
[2022-01-10] MEDS: IMODIUM 2 MG PO PRN (11:49)
[2022-01-10] MEDS: HYDROCODONE-ACETAMIN 10-325 MG PO PRN (11:54)
[2022-01-10] MEDS: ZOCOR 20MG PO SCH (22:23)
[2022-01-10] MEDS: REMDESIVIR 100 MG in Sodium Chloride 0.9% 100 ML BAG 100 ML IV SCH (22:23)
[2022-01-11] MEDS: Sodium Chloride 0.9% 1000 ML 1,000 ML IV SCH ×4 (00:40→22:20)
[2022-01-11] MEDS: Ativan 2 MG/1 ML VIAL IV PRN ×2 (02:47→08:12)
[2022-01-11 07:45] LABS: Absolute Neutrophil Ct (ANC) 3.92 (1.4-6.9); Basophil (Absolute #) 0.02 (0-0.4); Eosinophil (Absolute #) 0 (0-0.5); Hematocrit 50.6 % (42-50); Hemoglobin 17.1 gm/dl (12.5-18.0); Lymphocyte (Absolute #) 0.94 (1.0-4.6); Lymphocytes % 16.8 % (24.0-44.0); Mean Cell Volume 103.9 fl (78-100); Mean Corpuscular Hemoglobin 35.1 pg (26-32); Mean Corpuscular Hgb Concent. 33.8 g/dl (32-36); Monocyte (Absolute #) 0.71 (0.0-1.3); Monocytes % 12.7 % (0.0-12.0); Neutrophil % 70.1 % (36.0-66.0); Platelet Count 150 K/mm3 (150-450); Red Blood Count 4.87 M/mm3 (4.1-5.6); Red Cell Distribution Width 12.5 % (11.5-14.0); White Blood Count 5.6 K/mm3 (4.0-10.5)
[2022-01-11 07:51] LABS: ALKALINE PHOSPHATASE 43 U/L (38-126); ANION GAP 10.8 MEQ/L (5-15); BLOOD UREA NITROGEN 24 mg/dL (9-20); CHLORIDE 108 mmol/L (98-107); Calcium 7.7 mg/dL (8.4-10.2); Carbon Dioxide 30 mmol/L (22-30); Creatinine 1 0.79 mg/dL (0.66-1.25); EST GLOMERULAR FILTRATION RATE > 60.0 ML/MIN; Glucose 142 mg/dL (74-106); Potassium 3.6 mmol/L (3.5-5.1); SGOT/AST 35 U/L (17-59); SGPT/ALT 37 U/L (0-50); SODIUM 145 mmol/L (137-145); Total Protein 5.9 g/dL (6.3-8.2)
[2022-01-11] MEDS: PROTONIX 40 MG IV IV SCH (08:59)
[2022-01-11] MEDS: ENOXAPARIN SODIUM SQ SCH ×2 (08:59→21:06)
[2022-01-11] MEDS: OLUMIANT PO SCH (08:59)
[2022-01-11] MEDS: Artificial Tears 15 ML OP SCH ×2 (09:00→21:06)
[2022-01-11] MEDS: DECADRON 10MG INJ. IV SCH (09:00)
[2022-01-11] MEDS: ECOTRIN 81 MG PO SCH (09:00)
[2022-01-11] MEDS: Cardizem CD 120 MG PO SCH (09:00)
[2022-01-11] MEDS: IMODIUM 2 MG PO PRN (09:00)
[2022-01-11] MEDS: Lasix 40 MG PO SCH (09:00)
[2022-01-11] MEDS: Klor Con 10 MEQ PO SCH (09:01)
[2022-01-11] MEDS: MSIR 15 MG PO SCH (09:01)
[2022-01-11] MEDS: NYSTOP POWDER 15 GM TP SCH ×2 (09:04→21:07)
[2022-01-11] MEDS: Haldol 5 MG IM PRN ×3 (09:33→21:07)
[2022-01-11] MEDS: HYDROCODONE-ACETAMIN 10-325 MG PO PRN (12:24)
[2022-01-11] MEDS: ZOCOR 20MG PO SCH (21:07)
[2022-01-12] MEDS ORDERED: Cardizem CD 120 MG PO ONE (01:03)
[2022-01-12] MEDS: Ativan 2 MG/1 ML VIAL IV PRN ×3 (01:33→15:30)
[2022-01-12] MEDS ORDERED: NITRO-DUR 0.2 MG/HR TD ONE (02:27)
[2022-01-12] MEDS: Haldol 5 MG IM PRN (03:39)
[2022-01-12 05:39] LABS: Hematocrit 56.5 % (42-50); Hemoglobin 18.9 gm/dl (12.5-18.0); Mean Cell Volume 105.8 fl (78-100); Mean Corpuscular Hemoglobin 35.4 pg (26-32); Mean Corpuscular Hgb Concent. 33.5 g/dl (32-36); Platelet Count 111 K/mm3 (150-450); Red Blood Count 5.34 M/mm3 (4.1-5.6); Red Cell Distribution Width 12.7 % (11.5-14.0); White Blood Count 11.2 K/mm3 (4.0-10.5)
[2022-01-12 06:29] LABS: ALBUMIN 3.2 g/dL (3.5-5.0); ALKALINE PHOSPHATASE 47 U/L (38-126); BLOOD UREA NITROGEN 22 mg/dL (9-20); CHLORIDE 107 mmol/L (98-107); Calcium 7.9 mg/dL (8.4-10.2); Carbon Dioxide 29 mmol/L (22-30); Creatinine 1 0.69 mg/dL (0.66-1.25); EST GLOMERULAR FILTRATION RATE > 60.0 ML/MIN; Glucose 148 mg/dL (74-106); Potassium 4.3 mmol/L (3.5-5.1); SGOT/AST 49 U/L (17-59); SGPT/ALT 44 U/L (0-50); SODIUM 142 mmol/L (137-145); Total Protein 6.3 g/dL (6.3-8.2)
[2022-01-12 07:49] LABS: Lymphocytes 17 % (24-44); Neutrophils 83 % (36.-66.); Total Cells Counted 100
[2022-01-12 07:50] LABS: ANISOCYTOSIS 1+; Platelet Estimate NORMAL (NORMAL)
[2022-01-12] MEDS: Sodium Chloride 0.9% 1000 ML 1,000 ML IV SCH ×2 (08:24→21:37)
[2022-01-12] MEDS ORDERED: VASOTEC I.V. 2.5 MG IV PRN (08:33)
--- NOTE | 2022-01-12 08:36 | XRAY ---
Indication: Follow-up Covid 19 pneumonia. Comparison: [place] 2021. Portable chest remains underinflated again with diffuse left lung consolidating/nonconsolidating airspace disease mildly improved and stable mild right base infiltrate/atelectasis. Heart not enlarged. No new cardiopulmonary abnormalities.
[2022-01-12] MEDS: Lasix 40 MG/4 ML IV SCH (09:59)
[2022-01-12] MEDS ORDERED: Duragesic 25MCG Patch TD SCH (10:00)
[2022-01-12] MEDS ORDERED: Decadron 4 MG INJ IV SCH (10:00)
[2022-01-12] MEDS: PROTONIX 40 MG IV IV SCH (10:01)
[2022-01-12] MEDS: ENOXAPARIN SODIUM SQ SCH ×2 (10:03→21:37)
[2022-01-12] MEDS: Levofloxacin 500MG/100ML D5W 500 MG/100 ML BAG IV SCH (10:03)
[2022-01-12] MEDS: Artificial Tears 15 ML OP SCH ×2 (10:04→21:37)
[2022-01-12] MEDS: Klor Con 10 MEQ PO SCH (10:40)
[2022-01-12] MEDS: NYSTOP POWDER 15 GM TP SCH ×2 (10:40→21:42)
[2022-01-12] MEDS: Cardizem CD 120 MG PO SCH (10:40)
[2022-01-12] MEDS: ECOTRIN 81 MG PO SCH (10:40)
[2022-01-12] MEDS: OLUMIANT PO SCH (10:41)
[2022-01-12] MEDS: ZOCOR 20MG PO SCH (21:42)
[2022-01-13] MEDS: Ativan 2 MG/1 ML VIAL IV PRN ×2 (02:34→07:19)
[2022-01-13 05:02] LABS: Absolute Neutrophil Ct (ANC) 10.05 (1.4-6.9); Basophil (Absolute #) 0.02 (0-0.4); Eosinophil (Absolute #) 0 (0-0.5); Hemoglobin 17.5 gm/dl (12.5-18.0); Lymphocyte (Absolute #) 0.93 (1.0-4.6); Lymphocytes % 7.4 % (24.0-44.0); Mean Cell Volume 102.8 fl (78-100); Mean Corpuscular Hemoglobin 34.6 pg (26-32); Mean Corpuscular Hgb Concent. 33.7 g/dl (32-36); Mean Platelet Volume 11.2 fl (7.5-11.0); Monocyte (Absolute #) 1.54 (0.0-1.3); Monocytes % 12.3 % (0.0-12.0); Neutrophil % 80.1 % (36.0-66.0); Platelet Count 191 K/mm3 (150-450); Red Blood Count 5.06 M/mm3 (4.1-5.6); Red Cell Distribution Width 12.7 % (11.5-14.0); White Blood Count 12.5 K/mm3 (4.0-10.5)
[2022-01-13 05:23] LABS: ALBUMIN 2.9 g/dL (3.5-5.0); ALKALINE PHOSPHATASE 45 U/L (38-126); ANION GAP 8.6 MEQ/L (5-15); BLOOD UREA NITROGEN 29 mg/dL (9-20); CHLORIDE 105 mmol/L (98-107); Calcium 7.8 mg/dL (8.4-10.2); Carbon Dioxide 31 mmol/L (22-30); Creatinine 1 0.89 mg/dL (0.66-1.25); EST GLOMERULAR FILTRATION RATE > 60.0 ML/MIN; Glucose 143 mg/dL (74-106); Potassium 3.6 mmol/L (3.5-5.1); SGOT/AST 38 U/L (17-59); SGPT/ALT 40 U/L (0-50); SODIUM 141 mmol/L (137-145); Total Protein 5.7 g/dL (6.3-8.2)
[2022-01-13] MEDS ORDERED: Ativan 2 MG/1 ML VIAL IV PRN (07:47)
[2022-01-13] MEDS: PROTONIX 40 MG IV IV SCH (09:25)
[2022-01-13] MEDS: Lasix 40 MG/4 ML IV SCH (09:30)
[2022-01-13] MEDS: Levofloxacin 500MG/100ML D5W 500 MG/100 ML BAG IV SCH (09:31)
[2022-01-13] MEDS: ENOXAPARIN SODIUM SQ SCH ×2 (09:32→23:14)
[2022-01-13] MEDS: Klor Con 10 MEQ PO SCH (09:32)
[2022-01-13] MEDS: Artificial Tears 15 ML OP SCH ×2 (09:32→23:13)
[2022-01-13] MEDS: ECOTRIN 81 MG PO SCH (09:32)
[2022-01-13] MEDS: Cardizem CD 120 MG PO SCH (09:32)
[2022-01-13] MEDS: NYSTOP POWDER 15 GM TP SCH ×2 (09:32→23:12)
[2022-01-13] MEDS: OLUMIANT PO SCH (09:33)
[2022-01-13] MEDS: Sodium Chloride 0.9% 1000 ML 1,000 ML IV SCH (09:38)
[2022-01-13] MEDS ORDERED: Decadron 4 MG INJ IV SCH (10:00)
[2022-01-13] MEDS: REMDESIVIR 100 MG in Sodium Chloride 0.9% 100 ML BAG 100 ML IV SCH (11:15)
[2022-01-13] MEDS ORDERED: PHARMACY DOSING REQUEST MC ONE (14:20)
[2022-01-13] MEDS ORDERED: [UNRECOGNIZED DRUG - NUTRITION] IV SCH ×4 (18:00)
[2022-01-13] MEDS: ZOCOR 20MG PO SCH (23:12)
[2022-01-14 05:32] LABS: Basophil (Absolute #) 0 (0-0.4); Eosinophil % 0.1 % (0.00-5.0); Eosinophil (Absolute #) 0.02 (0-0.5); Hematocrit 52.8 % (42-50); Hemoglobin 17.4 gm/dl (12.5-18.0); Lymphocyte (Absolute #) 2.07 (1.0-4.6); Lymphocytes % 13.1 % (24.0-44.0); Mean Cell Volume 105.2 fl (78-100); Mean Corpuscular Hemoglobin 34.7 pg (26-32); Mean Platelet Volume 11.5 fl (7.5-11.0); Monocyte (Absolute #) 1.81 (0.0-1.3); Monocytes % 11.5 % (0.0-12.0); Neutrophil % 75.3 % (36.0-66.0); Platelet Count 188 K/mm3 (150-450); Red Blood Count 5.02 M/mm3 (4.1-5.6); Red Cell Distribution Width 12.8 % (11.5-14.0); White Blood Count 15.8 K/mm3 (4.0-10.5)
[2022-01-14 05:46] LABS: ALBUMIN 2.9 g/dL (3.5-5.0); ALKALINE PHOSPHATASE 48 U/L (38-126); BLOOD UREA NITROGEN 31 mg/dL (9-20); CHLORIDE 104 mmol/L (98-107); Calcium 8.2 mg/dL (8.4-10.2); Carbon Dioxide 36 mmol/L (22-30); Creatinine 1 0.95 mg/dL (0.66-1.25); EST GLOMERULAR FILTRATION RATE > 60.0 ML/MIN; Glucose 146 mg/dL (74-106); MAGNESIUM 2.7 mg/dL (1.6-2.3); Potassium 3.4 mmol/L (3.5-5.1); SGOT/AST 28 U/L (17-59); SGPT/ALT 36 U/L (0-50); SODIUM 146 mmol/L (137-145); Total Protein 5.9 g/dL (6.3-8.2)
--- NOTE | 2022-01-14 08:03 | XRAY ---
Exam: AP 40 semiupright portable chest film from 01/14/2022. Comparison: AP upright portable chest film from 01/13/2022. Indication: Covid Findings: The right-sided PICC line has been pulled back such that the tip is in the distal SVC at the mid T6 level. I believe this is in good position. The lungs are again hypoinflated. There has been some partial clearing at the left lung base with decreased infiltrate, better delineation of left hemidiaphragm, and apparent resolution of the left costophrenic angle blunting. Prior relatively round opacity within the peripheral left midlung field overlying the anterior margin of the left third rib is again seen and remains of uncertain etiology. Some granulomatous calcifications are seen within the right infrahilar projection. There is also better aeration at the right lung base as compared to 01/13/2022. No pneumothorax is seen. Other stable nonpulmonary findings are again seen, as previously discussed. Impression: 1. Right-sided PICC line has been pulled back with the tip pointing inferiorly at the mid T6 level within the distal SVC. This appears in satisfactory position. No pneumothorax is seen. 2. Mild bibasilar airspace disease, left greater than right, demonstrates mild improvement as compared to 01/13/2022. The lungs remain hypoinflated.
[2022-01-14 09:22] LABS: Slide Review 1 YES
[2022-01-14] MEDS: ECOTRIN 81 MG PO SCH (09:41)
[2022-01-14] MEDS: Klor Con 10 MEQ PO SCH (09:41)
[2022-01-14] MEDS: NYSTOP POWDER 15 GM TP SCH ×2 (09:41→22:21)
[2022-01-14] MEDS: Cardizem CD 120 MG PO SCH (09:41)
[2022-01-14] MEDS: Levofloxacin 500MG/100ML D5W 500 MG/100 ML BAG IV SCH (09:42)
[2022-01-14] MEDS: ENOXAPARIN SODIUM SQ SCH ×2 (09:42→22:21)
[2022-01-14] MEDS: Artificial Tears 15 ML OP SCH ×2 (09:42→22:20)
[2022-01-14] MEDS: Lasix 40 MG/4 ML IV SCH (09:43)
[2022-01-14] MEDS: PROTONIX 40 MG IV IV SCH (09:43)
[2022-01-14] MEDS: OLUMIANT PO SCH (09:43)
[2022-01-14] MEDS: REMDESIVIR 100 MG in Sodium Chloride 0.9% 100 ML BAG 100 ML IV SCH (11:38)
[2022-01-14] MEDS: [UNRECOGNIZED DRUG - NUTRITION] IV SCH ×5 (14:07)
[2022-01-14] MEDS: ZOCOR 20MG PO SCH (22:22)
[2022-01-15 06:11] LABS: Hematocrit 56.3 % (42-50); Hemoglobin 18.9 gm/dl (12.5-18.0); Mean Corpuscular Hemoglobin 35.3 pg (26-32); Mean Corpuscular Hgb Concent. 33.6 g/dl (32-36); Mean Platelet Volume 12.8 fl (7.5-11.0); Platelet Count 167 K/mm3 (150-450); Red Blood Count 5.36 M/mm3 (4.1-5.6); White Blood Count 21.3 K/mm3 (4.0-10.5)
[2022-01-15 06:16] LABS: ALBUMIN 3.1 g/dL (3.5-5.0); ALKALINE PHOSPHATASE 54 U/L (38-126); ANION GAP 10.3 MEQ/L (5-15); BLOOD UREA NITROGEN 28 mg/dL (9-20); CHLORIDE 101 mmol/L (98-107); Calcium 8.5 mg/dL (8.4-10.2); Carbon Dioxide 37 mmol/L (22-30); Creatinine 1 0.91 mg/dL (0.66-1.25); EST GLOMERULAR FILTRATION RATE > 60.0 ML/MIN; Glucose 170 mg/dL (74-106); MAGNESIUM 2.5 mg/dL (1.6-2.3); Potassium 3.6 mmol/L (3.5-5.1); SGOT/AST 25 U/L (17-59); SGPT/ALT 29 U/L (0-50); SODIUM 144 mmol/L (137-145); Total Protein 6.1 g/dL (6.3-8.2)
[2022-01-15 06:59] LABS: Lymphocytes 2 % (24-44); Monocyte 7 % (0.0-12.0); Neutrophils 91 % (36.-66.); Total Cells Counted 100
[2022-01-15 07:02] LABS: Platelet Estimate NORMAL (NORMAL)
[2022-01-15] MEDS ORDERED: [UNRECOGNIZED DRUG - REMARK] MC ONE (08:44)
[2022-01-15] MEDS: Merrem 1 GM 1 G in Sodium Chloride 100ML MINI-BAG PLUS 100 ML IV SCH ×2 (09:06→17:34)
[2022-01-15] MEDS: Artificial Tears 15 ML OP SCH ×2 (10:55→22:05)
[2022-01-15] MEDS: Cardizem CD 120 MG PO SCH (10:55)
[2022-01-15] MEDS: ENOXAPARIN SODIUM SQ SCH ×2 (10:55→22:05)
[2022-01-15] MEDS: ECOTRIN 81 MG PO SCH (10:55)
[2022-01-15] MEDS: Klor Con 10 MEQ PO SCH (10:56)
[2022-01-15] MEDS: NYSTOP POWDER 15 GM TP SCH ×2 (10:56→22:06)
[2022-01-15] MEDS: Lasix 40 MG/4 ML IV SCH (10:56)
[2022-01-15] MEDS: OLUMIANT PO SCH (10:56)
[2022-01-15] MEDS: PROTONIX 40 MG IV IV SCH (10:57)
[2022-01-15] MEDS: REMDESIVIR 100 MG in Sodium Chloride 0.9% 100 ML BAG 100 ML IV SCH (10:58)
[2022-01-15] MEDS: [UNRECOGNIZED DRUG - NUTRITION] IV SCH ×5 (15:50)
[2022-01-15] MEDS: ZOCOR 20MG PO SCH (22:06)
[2022-01-16 05:54] LABS: Hematocrit 61.2 % (42-50); Hemoglobin 19.9 gm/dl (12.5-18.0); Mean Cell Volume 105.9 fl (78-100); Mean Corpuscular Hemoglobin 34.4 pg (26-32); Mean Corpuscular Hgb Concent. 32.5 g/dl (32-36); Mean Platelet Volume 13.9 fl (7.5-11.0); Platelet Count 135 K/mm3 (150-450); Red Blood Count 5.78 M/mm3 (4.1-5.6); Red Cell Distribution Width 13.8 % (11.5-14.0)
[2022-01-16 06:21] LABS: ANION GAP 11.5 MEQ/L (5-15); BILIRUBIN,TOTAL 1.5 mg/dL (0.2-1.3); Calcium 8.6 mg/dL (8.4-10.2); Creatinine 1 1.22 mg/dL (0.66-1.25); EST GLOMERULAR FILTRATION RATE 59.9 ML/MIN; MAGNESIUM 3.2 mg/dL (1.6-2.3); Potassium 3.9 mmol/L (3.5-5.1); Total Protein 6.2 g/dL (6.3-8.2)
[2022-01-16 06:37] LABS: White Blood Count 26.6 K/mm3 (4.0-10.5)
[2022-01-16] MEDS: Merrem 1 GM 1 G in Sodium Chloride 100ML MINI-BAG PLUS 100 ML IV SCH (07:47)
[2022-01-16 08:41] VITALS: BP 95/66
[2022-01-16 08:53] LABS: BAND 1 % (0.0-2.0); Lymphocytes 10 % (24-44); Monocyte 7 % (0.0-12.0); Neutrophils 82 % (36.-66.); Total Cells Counted 100
[2022-01-16 08:57] LABS: Platelet Estimate NORMAL (NORMAL)
[2022-01-16] MEDS: Lasix 40 MG/4 ML IV SCH (09:31)
[2022-01-16] MEDS: ENOXAPARIN SODIUM SQ SCH (09:31)
[2022-01-16] MEDS: PROTONIX 40 MG IV IV SCH (09:31)
[2022-01-16] MEDS: Artificial Tears 15 ML OP SCH (09:32)
[2022-01-16] MEDS: NYSTOP POWDER 15 GM TP SCH (10:09)
[2022-01-16] MEDS: Klor Con 10 MEQ PO SCH (10:10)
[2022-01-16] MEDS: Cardizem CD 120 MG PO SCH (10:10)
[2022-01-16] MEDS: ECOTRIN 81 MG PO SCH (10:10)
[2022-01-16] MEDS: OLUMIANT PO SCH (10:11)
[2022-01-16 10:17] VITALS: PULSE 51; O2SAT 69
[2022-01-16] MEDS ORDERED: Sodium Chloride 0.9% 1000 ML 1,000 ML IV SCH (14:00)
--- NOTE | 2022-01-17 08:21 | XRAY ---
Exam: AP upright portable chest film from 3:09 PM on 01/13/2022. Comparison: AP upright portable chest film from 01/12/2022. Indication: PICC line placement. Findings: A right-sided PICC line is seen in place with the tip projecting over the right atrium pointing inferiorly at the lower T10 level. I see no pneumothorax. The heart size is normal. The lungs remain underinflated. Mild mixed interstitial/alveolar infiltrate with some minimal superimposed linear atelectasis and left basilar pleural fluid is seen. Minor blunting of the left costophrenic angle is new. In addition, a partially circumscribed 1.9 cm in diameter opacity is seen within the peripheral left midlung field and may represent a lung nodule. I don't believe this represents a significant interval change dating back to 01/06/2022. This opacity appears to be new from a two-view chest series from 06/11/2015. Scant linear atelectasis/scarring seen at the medial right lung base. The remainder of the right lung and left upper lung field appears clear. There appears to be partial excision of the lateral aspect of the right clavicle representing no change. Multiple radiopaque fastener devices overlie the right humeral head representing no change. Several surgical clips are seen at the base of the neck to the right of midline representing no change. Impression: 1. Interval placement of right-sided PICC line with tip pointing inferiorly at lower T10 level just to the right of midline. This is probably within right atrium. Correlate clinically. 2. There is new minor blunting of the left costophrenic angle which may be due to a small amount of pleural fluid. Otherwise, the remainder of the findings appears essentially unchanged, as discussed above.
--- NOTE | 2022-01-28 09:33 | DS ---
DATE OF : 01/16/2022 FINAL DIAGNOSES/CAUSE OF : COVID PNEUMONIA. HOSPITAL COURSE: The patient is an 86-year-old white male who unfortunately contracted the COVID infection. He was admitted on our COVID Unit extremely sick. He was placed on the usual Remdesivir and Decadron treatments initially. The patient had essentially continued deterioration of his status through his stay to the point where it was going to require intubation but it was decided that this was not a good option as his chance for recovery was essentially zero given his age. The patient continued having increase in respiratory problems and increasing O2 need. He began climbing out of bed and required some sedation to keep him safe. When we later tried to discontinue the Ativan and Haldol, the patient never really woke up beyond this and continued to have increasing respiratory problems to the point of his demise on 01/16/2022. The patient's was expected given the severity of his illness with COVID and not preventable by usual means of treatment despite our attempts to do so.
== END 2022-01-16 10:23 | disposition expired | DRG 177 ==
LOC: ED 10:51 → MED SURG 16:46 → OBSVTOIN 01-08 08:14
PROVIDERS: ADMIT Family Medicine; ATTEND Family Medicine
DX: U07.1 COVID-19 (principal); J12.82 Pneumonia due to coronavirus disease 2019; J96.01 Acute respiratory failure with hypoxia; K85.90 Acute pancreatitis without necrosis or infection, unspecified; R53.1 Weakness; R79.89 Other specified abnormal findings of blood chemistry; R19.7 Diarrhea, unspecified; I10 Essential (primary) hypertension; I25.10 Atherosclerotic heart disease of native coronary artery without angina pectoris; E78.00 Pure hypercholesterolemia, unspecified; Z20.828 Contact with and (suspected) exposure to other viral communicable diseases; Z79.899 Other long term (current) drug therapy
CPT/HCPCS: 0241U; 36000; 36415; 36600; 71045; 74176; 80053; 81001; 82375; 82803; 82947; 83605; 83690; 83735; 83880; 84145; 84484; 85025; 85027; 85379; 87040; 87086; 93005; 93268; 94640; 94762; 96365; 99285; G0378; J0248; J0456; J0696; J1100; J1630; J1650; J1815; J1940; J1956; J2060; J3480; A9270-GY